=== PATIENT | female | born 1990 | race American Indian/Alaskan Native ===

== ENCOUNTER 2021-03-03 08:54 | Emergency (ER) | payer SELFPAY ==
[2021-03-03 11:25] VITALS: BP 113/62
--- NOTE | 2021-03-03 11:41 | Emergency Department Report ---
ED General Adult HPI - General Chief complaint: Medical Clearance Stated complaint: DEHYDRATION Time Seen by Provider: 03/03/21 11:38 Source: patient Mode of arrival: Ambulatory Limitations: No Limitations - History of Present Illness Initial comments: The patient was evaluated in the emergency department for symptoms described in the history of present illness. He/she was evaluated in the context of the global COVID-19 pandemic, which necessitated consideration that the patient might be at risk for infection with the virus that causes COVID-19. In stitutional protocols and algorithms that pertain to the evaluation of patients at risk for COVID-19 are in a state of rapid change based on information released by regulatory bodies including the CDC and federal and state organizations. These policies and algorithms were followed during the patient's care in the emergency department. Please note that these policies, procedures and recommendations changed on a rapid basis. 30-year-old -[place] female presents to the emergency room stating she feels she may be dehydrated. Patient states that she is homeless and has not been eating or drinking well. She also reports of vaginal irritation and thinks she may have a yeast infection. Patient denies any fever chills denies any nausea no vomiting no diarrhea. Patient denies abdominal pain pelvic pain chest pain shortness of breath dizziness. Onset/Timin -: days(s) Severity scale (0 -10): 0 - Related Data Allergies Allergy/AdvReac Type Severity Reaction Status Date / Time No Known Allergies Allergy Unverified 03/03/21 08:57 ED Review of Systems ROS: Stated complaint: DEHYDRATION Other details as noted in HPI Comment: All other systems reviewed and negative ED Past Medical Hx - Past Medical History Previous Medical History?: No - Surgical History Past Surgical History?: No ED Physical Exam - General Limitations: No Limitations General appearance: alert, in no apparent distress - Head Head exam: Present: atraumatic, normocephalic - Eye Eye exam: Present: normal appearance - ENT ENT exam: Present: mucous membranes moist - Neck Neck exam: Present: normal inspection - Respiratory Respiratory exam: Present: normal lung sounds bilaterally. Absent: respiratory distress - Cardiovascular Cardiovascular Exam: Present: regular rate, normal rhythm. Absent: systolic murmur, diastolic murmur, rubs, gallop - GI/Abdominal GI/Abdominal exam: Present: soft, normal bowel sounds - Extremities Exam Extremities exam: Present: normal inspection - Back Exam Back exam: Present: normal inspection - Neurological Exam Neurological exam: Present: alert, oriented X3 - Psychiatric Psychiatric exam: Present: normal affect, normal mood - Skin Skin exam: Present: warm, dry, intact, normal color. Absent: rash ED Course Vital Signs 03/03/21 03/03/21 03/03/21 09:00 09:01 11:24 Pulse Rate 83 83 70 Respiratory 16 Rate Blood Pressure 108/73 Blood Pressure 113/62 [Left] O2 Sat by Pulse 100 100 100 Oximetry ED Medical Decision Making - Medical Decision Making 30-year-old -[place] female presents to the emergency room stating she feels she may be dehydrated. Patient states that she is homeless and has not been eating or drinking well. She also reports of vaginal irritation and thinks she may have a yeast infection. Patient denies any fever chills denies any nausea no vomiting no diarrhea. Patient denies abdominal pain pelvic pain chest pain shortness of breath dizziness. Urinalysis urine test sent out. Critical care attestation.: If time is entered above; I have spent that time in minutes in the direct care of this critically ill patient, excluding procedure time. ED Disposition Condition: Stable Referrals: PRIMARY CARE, [Primary Care Provider] - 3-5 Days
[2021-03-03 12:44] LABS: HCG Qualitative,Urine Negative (Negative)
[2021-03-03 12:45] LABS: Bilirubin,Urine Negative (Negative); Blood,Urine Negative (Negative); Color,Urine Yellow (Yellow); Protein,Urine <15 mg/dL mg/dL (Negative)
[2021-03-03 13:18] LABS: RBC,Urine < 1.0 /HPF (0.0-6.0); WBC,Urine < 1.0 /HPF (0.0-6.0)
== END 2021-03-03 19:00 | disposition home or self-care (01) ==
LOC: ED 08:54
DX: E86.0 Dehydration (principal)
CPT/HCPCS: 81001; 81025; 99283